=== PATIENT | female | born 1930 | race Caucasian/White ===

== ENCOUNTER 2016-08-17 18:23 | Emergency (ER) | payer MEDICARE, OTHER ==
[~2016-08-17] VITALS: Ht 157.5 cm; Wt 56.8 kg
[2016-08-17 18:26] VITALS: BP 114/79; PULSE 71; RESP 20; O2SAT 97
--- NOTE | 2016-08-17 18:56 | ED.REPORT ---
HPI-Head Prob / Injury Date of Service Aug 17, 2016 ED Provider: Brady Davenport DO Patient is an 86 year old female with a history of OK and ventricular arrhythmia who presents to the ED due to a fall. Associated symptoms include head pain and neck pain. She denies losing consciousness, nausea, chest pain, shortness of breath or vomiting. Patient [place], [place] and hit the back of her head on a log. The patient is currently on Plavix. Nursing Notes Stated Complaint: HEADACHE FOLLOWING FALL Chief Complaint: Head, Face, Neck Trauma Nursing Notes Reviewed: Yes Allergies: Coded Allergies: No Known Allergies (Unverified , 08/17/16) General Time Seen by Provider: 18:55 Chief Complaint Blunt head trauma Hx Obtained From: Patient Arrived By: Walk-in Onset Occurred: Just prior to arrival Symptom Duration: Since onset Location: : Occipital region L: Occipital region R Quality: Painful Severity: Current: Moderate Similar Sx Previous: No Past Medical History Past Medical History OK Smoking History Unknown if Ever Smoker Ambulatory Status Independent Review of Systems Constitutional: Denies: Chills, Fever GI: Denies: Nausea, Vomiting Musculoskeletal: Reports: Neck pain Neurologic: Reports: Headache, Denies: Change LOC, Dizziness, Problem walking, Weakness Complete sys rev & neg: except as marked. Respiratory: Denies: Non-productive cough, Shortness of breath Cardiovascular: Denies: Chest pain Physical Exam Initial Vital Signs Vital Signs (First) Date Time Temp Pulse Resp B/P Pulse Ox O2 Delivery O2 Flow Rate FiO2 08/17/16 18:26 36.4 71 20 114/79 97 Room Air Initial VS: Reviewed General/Constitutional: Awake, Alert Head / Eyes: Normocephalic, PERRL, EOMI ENT: Atraumatic, Airway patent, Mucous membranes moist Neck: Atraumatic, Supple Neurologic: Oriented X3, Speech NL, No motor deficits, No sensory deficits Respiratory / Chest: Atraumatic, No respiratory distress Skin: Atraumatic, Color NL, No rash, Warm, Dry Psychiatric: Affect NL, Mood NL Interpretation & Diagnostics Interpretation & Diagnostics: REPEAT HEAD CT: No evidence of hemorrhage, mass or acute infarct. at 0024 CT Head Interpretation IMPRESSION: 1. No definite acute intracranial abnormality. 2. Small focus of hyperdensity along the right cerebral hemisphere likely represents dystrophic calcification. The appearance is atypical for hemorrhage. 3. Mild chronic white matter small vessel ischemic changes and cerebral volume loss. Dictated by: Addison Roach M.D. on 08/17/2016 at 20:07 Approved by: Addison Roach M.D. on 08/17/2016 at 20:12 Interpretation / Wet Read by: Interpret - Radiologist CT C-Spine Interpretation IMPRESSION: 1. No acute fractures. 2. Minimal anterolisthesis at C3-C4 and C7-T1 likely degenerative in etiology. Dictated by: Addison Roach M.D. on 08/17/2016 at 20:13 Approved by: Addison Roach M.D. on 08/17/2016 at 20:19 Interpretation / Wet Read by: Interpret - Radiologist Re-Eval/Medical Decision Med Decision/Clinical Course 4 hour scan demonstrated no intracranial hemorrhage. Will DC home with head injury aftercare instructions and outpatient follow-up. Re-Evaluation/Progress #1: Time of Eval: 20:56 Re-Evaluation/Progress Note: Discussed CT results and plan for a repeat CT scan. Re-Evaluation/Progress #2: Time of Eval: 00:44 Re-Evaluation/Progress Note: Discussed repeat CT and plan for discharge. Patient understands and agrees to plan. All questions were addressed Counseled Regarding: Diagnosis, Lab results, Need for follow-up, When/why to return to ED Discharge & Departure Primary Impression: Fall Encounter type: initial encounter Qualified Code: W19.XXXA - Unspecified fall, initial encounter Additional Impression: Head pain Headache type: unspecified Headache chronicity pattern: acute headache Intractability: not intractable Qualified Code: R51 - Headache Disposition: Home All VS Reviewed: Yes Condition: Stable Patient Instructions: Head Injury (ED) Additional Instructions: Your labs and scans were normal and reassuring. There was no evidence of a brain bleed or fracture in your spine. You can take Tylenol as directed for pain. Follow up with your primary care physician next week. Return to the emergency department if you develop any new or concerning symptoms include vomiting, headache, neck stiffness or increasing pain. Scribe Attestation Portions of this note were transcribed by Rina Toney. I, Dr. Davenport personally performed the history, physical exam and medical decision-making; I reviewed and confirmed the accuracy of the information in the transcribed note. Signed by: Alyssa Jovel, 08/17/16 and Brady Hoffman DO Aug 17, 2016 18:56 Cecilia Toney Aug 17, 2016 19:07
--- NOTE | 2016-08-17 20:14 | DRSVH ---
PROCEDURE: CT BRAIN WITHOUT CONTRAST ([id number]) INDICATIONS: fall TECHNIQUE: Noncontrast 4.5 mm thick angled axial sections acquired from the foramen magnum to the vertex, with c oronal reformats. COMPARISON: None. FINDINGS: Image quality: Excellent. CSF spaces: Basal cisterns are patent. No extra-axial fluid collections. The ventricles are symmet vivian in size and shape. There is mild cerebral volume loss, with resultant ventricular and sulcal pro minence. Brain: No definite intracranial hemorrhage, mass, or mass effect. There is a focus of hyperdensity along the right cerebellar hemisphere likely representing calcification. There are subcortical, deepa ventricular and deep white matter hypodensities consistent with mild chronic small vessel ischemic ch anges. There is intracranial internal carotid artery atherosclerosis. Skull and face: Calvarium and visualized facial bones appear intact, without suspicious lesions. Sinuses: Visualized sinuses demonstrate mild mucosal thickening within the maxillary and ethmoid sin uses with an air fluid level in the right maxillary sinus suggesting acute sinusitis. Mastoid air ce lls are clear. IMPRESSION: 1. No definite acute intracranial abnormality. 2. Small focus of hyperdensity along the right cerebral hemisphere likely represents dystrophic calc ification. The appearance is atypical for hemorrhage. 3. Mild chronic white matter small vessel ischemic changes and cerebral volume loss. Dictated by: Addison Roach M.D. on 08/17/2016 at 20:07 Approved by: Addison Roach M.D. on 08/17/2016 at 20:12
--- NOTE | 2016-08-17 20:21 | DRSVH ---
PROCEDURE: CT CERVICAL SPINE WITHOUT CONTRAST ([id number]) INDICATIONS: fall TECHNIQUE: Noncontrast 3 mm thick sections acquired from the skull base to the T4 level. Sagittal and coronal r eformats were then constructed. For radiation dose reduction, the following was used: automated exp osure control, adjustment of mA and/or kV according to patient size. COMPARISON: None. FINDINGS: Image quality: Excellent. Bones: No fractures or dislocations. There is minimal anterolisthesis at C3-C4 and C7-T1 which are likely degenerative in etiology. The level disc space narrowing is present throughout the cervical s pine including moderate narrowing at C5-C6 and C6-C7. There is also mild multilevel uncovertebral an d facet joint arthropathy in the cervical spine. Visualized superior ribs are intact. Soft tissues: Prevertebral soft tissues are normal in thickness. No paravertebral hematomas. No ap ical pneumothoraces. There is prominent calcified plaque at the carotid bifurcations bilaterally. IMPRESSION: 1. No acute fractures. 2. Minimal anterolisthesis at C3-C4 and C7-T1 likely degenerative in etiology. Dictated by: Addison Roach M.D. on 08/17/2016 at 20:13 Approved by: Addison Roach M.D. on 08/17/2016 at 20:19
[2016-08-17 20:23] VITALS: BP 196/91; PULSE 70; O2SAT 99
--- NOTE | 2016-08-18 09:14 | DRSVH ---
PROCEDURE: CT BRAIN WITHOUT CONTRAST ([id number]) INDICATIONS: head injury, follow up on abnormality TECHNIQUE: Noncontrast 4.5 mm thick angled axial sections acquired from the foramen magnum to the vertex, with c oronal reformats. COMPARISON: [facility], CT, CT BRAIN WO CON, 08/17/2016, 19:50. FINDINGS: Image quality: Excellent. CSF spaces: Basal cisterns are patent. No extra-axial fluid collections. The ventricles are symmet vivian in size and shape. Brain: No intracranial bleeds or masses. There is cerebral volume loss for age, with resultant vent ricular and sulcal prominence. There are periventricular and deep white matter chronic small vessel ischemic changes. There is intracranial internal carotid artery atherosclerosis. Skull and face: Calvarium and visualized facial bones appear intact, without suspicious lesions. Sinuses: Visualized sinuses and mastoids are clear. IMPRESSION: Normal examination. Note: These findings are concordant with the preliminary interpretation. Dictated by: Linden Pichardo M.D. on 08/18/2016 at 9:11 Approved by: Linden Pichardo M.D. on 08/18/2016 at 9:12
== END 2016-08-18 00:40 | disposition home or self-care (01) ==
LOC: SED 18:23
DX: R51 Headache (principal); M54.2 Cervicalgia; W19.XXXA Unspecified fall, initial encounter; Y93.01 Activity, walking, marching and hiking; Y92.832 Beach as the place of occurrence of the external cause; Y99.8 Other external cause status; I25.2 Old myocardial infarction